=== PATIENT | male | born 1965 | race African-American/Black ===

== ENCOUNTER 2018-01-02 06:25 | Inpatient (IN) | payer OTHER, MEDICAID ==
[~2018-01-02] VITALS: Ht 190.5 cm; Wt 113.4 kg
[~2018-01-02 06:25] MED LIST: DIAZ5TAB7 PO; DIPH25CA PO; DIVA125E3 PO; HYDR4TAB6 PO
--- NOTE | 2018-01-02 06:25 | NUR ---
PT BIB ALS TO ER BED 11
--- NOTE | 2018-01-02 06:28 | NUR ---
52/M BIBA FROM BUS STOP. PT C/O HEADACHE AND R HIP PAIN, X1.5 HR. PT STATED THAT HE "TWISTED HIS HIP WHILE GETTING OFF THE BUS." PT AOX4, AMB WITH ASSISTIVE DEVICE, RR EVEN AND UNLABORED. LUNG SOUNDS CLEAR BL. BS ACTIVE X4, ABD SOFT ROUND NONTENDER. NO OBVIOUS ABNORMALITY NOTED ON R HIP. HX LEGALLY BLIND, BL HIP REPLACEMENT, MIGRAINE, SCHIZOAFFECTIVE RX DEPAKOTE, VALIUM, SEROQUEL; TOOK NORCO 4HRS AGO WITH LITTLE RELIEF.
[2018-01-02 06:29] VITALS: BP 117/78
[2018-01-02] MEDS ORDERED: NACL 0.9% 1,000 ML IV ONE (06:40)
--- NOTE | 2018-01-02 06:45 | NUR ---
MIRNA MENCHACA AT [facility] Addendum: 01/02/18 at [address] THOMSON AT [facility] TO SEE PT.
--- NOTE | 2018-01-02 07:03 | NUR ---
DR BOUCHER AT BEDSIDE TO SEE PT
[2018-01-02] MEDS ORDERED: diphenhydrAMINE 50 MG CAP PO ONE (07:05)
[2018-01-02] MEDS ORDERED: MORPHINE SULFATE 4 MG/ML SYR IM ONE ×2 (07:05→09:20)
--- NOTE | 2018-01-02 07:05 | NUR ---
PER DR BOUCHER, NO NEED FOR IV. PENDING MEDS, WILL ADMINISTER ORDERED. CAUSTICS LOADER AT BEDSIDE TO DRAW BLOOD, URINE SAMPLE HANDED TO TECH.
--- NOTE | 2018-01-02 07:13 | NUR ---
PT TAKEN TO XR
--- NOTE | 2018-01-02 07:15 | NUR ---
Pt report given to FRANCO BERMUDEZ. Transfer of care at this time.
--- NOTE | 2018-01-02 07:20 | NUR ---
PT IS BACK FROM X-RAY.
[2018-01-02 07:21] LABS: BASOPHILS # (AUTO) 0.1 K/uL (0.00-0.22); MEAN CORPUSCULAR HGB CONC 34 g/dL (33-37); WHITE BLOOD COUNT (AUTO) 10.7 K/uL (4.8-10.8)
--- NOTE | 2018-01-02 07:21 | NUR ---
PT IS AAOX4, C/O HEADACHE AND RIGHT HIP PAIN 01/16, NO RELEAVE AFTER PAIN MEDICATION GIVEN EARLY, VSS, DENIES CHEST PAIN, SOB, OR N/V, REQUESTED BREAKFAST.
[2018-01-02 07:27] LABS: BASOPHILS % (AUTO) 1.4 % (0.0-2.0); EOSINOPHILS # (AUTO) 0.2 K/uL (0-0.4); EOSINOPHILS % (AUTO) 1.7 % (0.0-4.0); HEMOGLOBIN 16.7 g/dL (12.0-18.0); LYMPHOCYTES % (AUTO) 37.5 % (20.5-51.1); MEAN CORPUSCULAR HEMOGLOBIN 30 pg (27-31); MEAN CORPUSCULAR VOLUME 89.1 fL (80-94); MONOCYTES # (AUTO) 1.4 K/uL (0.8-1.0); MONOCYTES % (AUTO) 12.9 % (1.7-9.3); NEUTROPHILS % (AUTO) 46.5 % (42.2-75.2); PLATELET COUNT (AUTO) 233 K/uL (140-450); RED CELL DISTRIBUTION WIDTH 14.4 % (11.6-13.7)
[2018-01-02 07:33] LABS: BARBITURATE, URINE NEG. ng/ml (NEG <=200); BENZODIAZEPINE, URINE NEG. ng/mL (NEG <=200); CANNABINOID, URINE POS. ng/mL (NEG <=50); COCAINE, URINE POS. ng/mL (NEG <=300); OPIATE, URINE NEG. ng/mL (NEG <=2000); PHENCYCLIDINE SCREEN,URINE NEG. ng/mL (NEG <=25)
[2018-01-02 07:34] LABS: ANION GAP 16.7 (8-16); CARBON DIOXIDE 20.8 mmol/L (21-32); CHLORIDE 104 mmol/L (98-107); GFR ARICAN-AMERICAN 101 mL/min (>90); GLUCOSE 113 mg/dL (74-106); POTASSIUM 3.5 mmol/L (3.5-5.1); SODIUM SERUM 138 mmol/L (136-145); UREA NITROGEN, BLOOD 12 mg/dL (7-18)
[2018-01-02 07:40] LABS: ALBUMIN 3.9 g/dL (3.4-5.0); ASPARTATE AMINOTRANSFERASE 26 U/L (15-37); TOTAL BILIRUBIN 0.9 mg/dL (0.0-1.0)
[2018-01-02 07:44] LABS: ACETAMINOPHEN < 0.5 ug/ml (10-30); SALICYLATE < 2.8 mg/dL (2.8-20.0)
--- NOTE | 2018-01-02 08:00 | NUR ---
BREAKFAST OFFERED, PT ATE 100%
--- NOTE | 2018-01-02 08:27 | NUR ---
PT STATED HE WANTED TO KILL HIMSELF BECAUSE HE MISSED HIS , AND HE WANTED TO STAND INFRONT OF TRAFFIC TO KILL HIMSELF AT THIS TIME, ER MADE AWARE.
--- NOTE | 2018-01-02 08:50 | NUR ---
PSYCHIATRIST DR. KEY TELECONSULT DONE AT BEDSIDE, WITH HOLD FOR PSYCHIATRIC FACILITY RECOMENDATION, DR. BOUCHER MADE AWARE.
--- NOTE | 2018-01-02 09:10 | NUR ---
PATIENT MOVED TO BED 5 AT THIS TIME.
--- NOTE | 2018-01-02 09:54 | NUR ---
Patient appears to be resting comfortably in bed. Vital Signs within normal limits. Respirations even and unlabored.
--- NOTE | 2018-01-02 10:30 | NUR ---
Call Center aware of patient and packet recv'd for psych placement. Chart faxed to the following facilities for review and potential placement: [facility] L[facility] Lim, [facility] Sandi Gan
--- NOTE | 2018-01-02 12:30 | NUR ---
Patient appears to be resting comfortably in bed. Vital Signs within normal limits. Respirations even and unlabored.
--- NOTE | 2018-01-02 12:55 | NUR ---
LUNCH TRAY OFFERED; PT ATE 100% OF TRAY
--- NOTE | 2018-01-02 14:30 | NUR ---
Patient appears to be resting comfortably in bed. Vital Signs within normal limits. Respirations even and unlabored.
--- NOTE | 2018-01-02 16:00 | NUR ---
Patient appears to be resting comfortably in bed. Vital Signs within normal limits. Respirations even and unlabored.
[2018-01-02] MEDS ORDERED: ONDANSETRON 4 MG/2 ML VIAL IM/IVP PRN (17:55)
[2018-01-02] MEDS ORDERED: DOCUSATE SODIUM 100 MG GELCAP PO PRN (17:55)
--- NOTE | 2018-01-02 18:02 | NUR ---
PATIENT OFFERED DINNER TRAY. PATIENT ATE 10% ONLY AND DRANK ORANGE JUICE. DID NOT WANT WHAT WAS OFFERED.
[2018-01-02] MEDS ORDERED: DIVA500T1 PO (19:09)
[2018-01-02] MEDS ORDERED: CITA20TA15 PO (19:09)
[2018-01-02] MEDS ORDERED: QUET400T PO (19:09)
--- NOTE | 2018-01-02 19:25 | NUR ---
Patient will be admitted to care of Dr. haddad. Admited to med surg. Will go to room 109 B. Belongings list completed. Report to vickie GAMEZ. pt vitals stable.
--- NOTE | 2018-01-02 19:25 | NUR ---
PT ARRIVED AT UNIT VIA WHEELCHAIR, PT AMBULATED TO BED, TOLERATED WELL, REPORT RECEIVED FROM ER NURSE ELIDA GAMEZ, PT STABLE, NO DISTRESS NOTED, PT HAS NO IV ACCESS, PT ON ROOM AIR, NO SOB, V/S TAKEN, WNL, MRSA SWAB TAKEN, INITIAL ASSESSMENT DONE, ALL SAFETY PRECAUTION MET, 1:1 SITTER AT BEDSIDE, WILL CONTINUE TO MONITOR.
--- NOTE | 2018-01-02 19:25 | NUR ---
Pt report given to [facility] med surg. Transfer of care at this time. pt vitals stable.
[2018-01-02] MEDS: NACL 0.9% 1,000 ML IV SCH (19:30)
--- NOTE | 2018-01-02 19:30 | NUR ---
PT REFUSED IV INSERTED, DR. GIPSON NOTIFIED, STATED UNDERSTANDING, PT RESTING, NO DISTRESS NOTED, CALL LIGHT WITHIN REACH, WILL CONTINUE TO MONITOR. Addendum: 01/02/18 at 2346 by Shraddha Frye RN 1:1 SITTER AT BEDSIDE
[2018-01-02 19:37] LABS: PROTHROMBIN TIME 10.9 secs (10.8-13.4)
[2018-01-02] MEDS: HYDROcodone/APAP 5/325 MG 1 TAB TAB PO PRN (19:49)
[2018-01-02 19:50] LABS: MAGNESIUM 2.2 mg/dL (1.8-2.4)
[2018-01-02 19:51] LABS: PHOSPHORUS 2.4 mg/dL (2.5-4.9); THYROID STIMULATING HORMONE 1.32 uIU/mL (0.34-3.74)
[2018-01-02 20:00] VITALS: BP 118/70
--- NOTE | 2018-01-02 20:06 | NUR ---
PT STATED THAT HE HAS NOT DID A BM SINCE 1 WEEK AGO, AND REQUESTED TO HAVE MAGNESIUM CITRATE, PER PT THAT IS THE ONLY THING THAT WORKS, NOTIFIED DR. GIPSON REGARDING PT CONCERNS AND COMPLAINTS, STATED UNDERSTANDING, AND WILL ORDER MEDICATION. WILL CONTINUE WITH ORDERS.
[2018-01-02] MEDS ORDERED: MAGNESIUM CITRATE 300 ML BTL PO SCH (20:30)
--- NOTE | 2018-01-02 20:30 | NUR ---
Cnc Mill And Lathe Operator Notes: I attempted to meet with patient for a screen however; Patient was not cooperative and willing to met and answer any questions from DRY PRIMER POWDER BLENDER. Patient Stated " I do not want to talk now".
[2018-01-02] MEDS: QUEtiapine FUMARATE 100 MG TAB PO SCH (20:58)
--- NOTE | 2018-01-02 20:58 | NUR ---
DUE MEDICATION ADMINISTERED, PT TOLERATED WELL, NO DISTRESS NOTED, CALL LIGHT WITHIN REACH, WILL CONTINUE TO MONITOR. Addendum: 01/02/18 at 2346 by Shraddha Frye RN 1:1 SITTER AT BEDSIDE
[2018-01-03] VITALS: BP 101/60
--- NOTE | 2018-01-03 00:10 | NUR ---
CHECKED ON PT, PT SLEEPING,NO DISTRESS NOTED, V/S TAKEN, WNL, 1:1 SITTER AT BEDSIDE, WILL CONTINUE TO MONITOR.
--- NOTE | 2018-01-03 03:59 | NUR ---
No update from contacted facilities at this time. Called [facility] and s/w Rochelle, they have no beds at this time. Called [facility] and s/w Dean they have no beds at this time and are still reviewing charts. Called [facility] and s/w Aide, they have no beds at this time and are still reviewing charts. Called [facility] and s/w Cesar, No vacancies at this time. Called [facility] s/w Ada, No bed vacancies. Called [facility] left message, No answer Called [facility] and s/w Ender, No beds available today. Called [facility] and s/w Citlali, No bed vacancies tonight. Called [facility] and s/w Fiorella, no Beds at this time. Called [facility] and s/w Dahiana, No beds available at this time. Called [facility] and s/w Josie, No vacancies at this time. will endorse to next shift.
--- NOTE | 2018-01-03 04:10 | NUR ---
CHECKED ON PT, PT SLEEPING, NO DISTRESS NOTED, 1:1 SITTER AT BEDSIDE, WILL CONTINUE TO MONITOR.
--- NOTE | 2018-01-03 06:45 | NUR ---
PT REFUSES BLOOD DRAW, NO DISTRESS NOTED, CALL LIGHT WITHIN REACH, WILL CONTINUE TO MONITOR.
[2018-01-03] MEDS: HYDROcodone/APAP 5/325 MG 1 TAB TAB PO PRN (06:54)
--- NOTE | 2018-01-03 07:17 | NUR ---
ENDORSED PT TO DAY SHIFT NURSE KASEY RN, PT STABLE, NO DISTRESS NOTED, CALL LIGHT WITHIN REACH
--- NOTE | 2018-01-03 07:17 | NUR ---
RECEIVED REPORT FROM NIGHTSHIFT NURSE AT BEDSIDE. PATIENT IS ASLEEP AT THIS TIME IN LEFT LATERAL POSITION. PATIENT AROUSABLE TO NAME. NO DISTRESS NOTED. PATIENT WAS JUST MEDICATED BY NIGHTSHIFT NURSE. NO PAIN NOTED. NO IV ACCESS. PATIENT HAS 1:1 SITTER. SAFETY MEASURES ENSURED. WILL CONTINUE TO MONITOR PATIENT.
[2018-01-03 08:00] VITALS: BP 126/78
[2018-01-03] MEDS: DIVALPROEX 500 MG TABER PO SCH (08:18)
[2018-01-03] MEDS: DIAZEPAM 5 MG TAB PO SCH (08:19)
[2018-01-03] MEDS: CITALOPRAM 20 MG TAB PO SCH (08:19)
--- NOTE | 2018-01-03 08:19 | NUR ---
PATIENT TOOK ALL AM MEDICATIONS. PATIENT TOLERATED WELL.
--- NOTE | 2018-01-03 08:48 | NUR ---
PATIENT HAS BEEN SCREENED AND CATEGORIZED LOW NUTRITION RISK. PATIENT WILL BE SEEN WITHIN 7 DAYS OF ADMISSION. 01/09/[address]
--- NOTE | 2018-01-03 10:02 | NUR ---
PATIENT RESTING AT THIS TIME. 1:1 SITTER PRESENT. WILL CONTINUE TO MONITOR PATIENT.
--- NOTE | 2018-01-03 11:24 | NUR ---
Packet faxed to [facility] for review.
[2018-01-03] MEDS: HYDROcodone/APAP 10/325 MG 1 TAB TAB PO PRN ×2 (11:41→20:18)
--- NOTE | 2018-01-03 14:19 | NUR ---
PT REFUSED ECHO TO BE DONE TODAY, WILL TRY TO DO TOMORROW
--- NOTE | 2018-01-03 14:21 | NUR ---
PATIENT IS ASLEEP AT THIS TIME. WILL CONTINUE TO MONITOR PATIENT.
[2018-01-03 16:12] VITALS: BP 109/59
--- NOTE | 2018-01-03 19:20 | NUR ---
GAVE REPORT TO NIGHTSHIFT NURSE AT BEDSIDE. PATIENT IN STABLE CONDITION.
[2018-01-03] MEDS: NACL 0.9% 1,000 ML IV SCH (19:30)
--- NOTE | 2018-01-03 19:30 | NUR ---
ASSUMED CARE OF PATIENT, AWAKE, NO COMPLAINS. SITTER 1:1 AT BEDSIDE. PLAN OF CARE DISCUSSED WITH PATIENT AND FAMILY MEMBER, VERBALIZED UNDERSTANDING WELL. CALL LIGHT WITHIN REACH.
[2018-01-03] MEDS: QUEtiapine FUMARATE 100 MG TAB PO SCH (20:37)
--- NOTE | 2018-01-03 23:11 | NUR ---
ASLEEP NOW. NO COMPLAINS. CALL LIGHT WITHIN REACH. SITTER AT BEDSIDE.
[2018-01-04 00:29] VITALS: BP 107/60
[2018-01-04] MEDS: HYDROcodone/APAP 10/325 MG 1 TAB TAB PO PRN ×4 (02:48→20:14)
--- NOTE | 2018-01-04 07:21 | NUR ---
ENDORSED CARE AT BEDSIDE WITH TIN RN, PATIENT IN STABLE CONDITION.
--- NOTE | 2018-01-04 07:21 | NUR ---
RECEIVED REPORT FROM NURSE. PT QUIETLY RESTING IN BED, A/O ABLE TO COMMUNICATE NEEDS. NO S/S OF ACUTE DISTRESS NOTED, SAFETY MEASURES IN PLACE. WILL CONTINUE TO MONITOR.
--- NOTE | 2018-01-04 07:45 | NUR ---
PHYSICIAN AT BEDSIDE ROUNDING ON PT.
[2018-01-04 08:00] VITALS: BP 139/74
[2018-01-04] MEDS: DIAZEPAM 5 MG TAB PO SCH (08:30)
[2018-01-04] MEDS: DIVALPROEX 500 MG TABER PO SCH (08:30)
[2018-01-04] MEDS: CITALOPRAM 20 MG TAB PO SCH (08:30)
--- NOTE | 2018-01-04 10:15 | NUR ---
Pt resting comfortably, no s/s of acute distress noted, safety measures and suicide precautions remain in place, will continue to monitor continuously.
--- NOTE | 2018-01-04 12:55 | NUR ---
Pt awake, A/O able to communicate needs, sitting at bedside having lunch. Pt denies pain or discomfort at this time. No s/s of acute distress noted, safety measures and suicide precautions remain in place, will continue to monitor continuously.
--- NOTE | 2018-01-04 14:21 | NUR ---
[facility], [facility], NO BEDS PER [facility], [facility]EDS [facility], NO BEDS PER [facility], NO BEDS PER [facility], NO BEDS PER [facility] PACKETS SENT AVAILABLE FOR WAITLIST ARE [facility] AND [facility].
[2018-01-04 16:00] VITALS: BP 116/59
--- NOTE | 2018-01-04 16:00 | NUR ---
Pt quietly resting in bed. Pt OOB to bathroom ad delicia during shift, frequently repositions independently. Pt remains able to communicate needs. No s/s of pain or acute distress noted at this time, safety measures and suicide precautions remain in place, will continue to monitor continuously.
--- NOTE | 2018-01-04 16:31 | NUR ---
Received call from Citlali at [facility] regarding pt placement, answered inquiries regarding pertinent information. Per Dr Guerin Pt is medically clear, notified we are waiting for final approval from [facility]. Charge nurse Brittany also notified Pt is being considered for placement at [facility]; awaiting call back for confirmation. ;
--- NOTE | 2018-01-04 17:01 | NUR ---
Per Citlali at [facility] bed available however when they attempted insurance verification, they were informed that the Pt does not have any additional hospital or Psych days available. personnel manager out of the office, Charge nurse Brittany notified.
--- NOTE | 2018-01-04 19:16 | NUR ---
Pt quietly resting in bed. Pt remained oriented and able to communicate needs throughout shift. Pt did not attempt or threaten self harm during shift. Pt c/o pain x 2, encouraged relaxation, distraction and repositioning without sufficient relief, Pt administered oral pain medication as ordered with effectiveness. No s/s of pain or acute distress noted at this time, safety measures and suicide precautions remain in place. [facility] Adelaide.
--- NOTE | 2018-01-04 19:17 | NUR ---
RECEIVED REPORT FROM DAY SHIFT RN, FOR CONTINUITY OF CARE. PT IS A/OX4 AND LEGALLY BLIND, ON ROOM AIR. PT IS ABLE TO MAKE NEEDS KNOWN, ABLE TO FOLLOW COMMANDS. PT BREATHS EQUAL AND UNLABORED, LUNG SOUNDS CLEAR. PT SKIN IS INTACT. PT AMBULATES WITH ASSIST. PT REFUSED IV ACCESS. DISCUSSED PLAN OF CARE WITH PT, PT VERBALIZED UNDERSTANDING. VITAL SIGNS WITHIN NORMAL LIMITS. PT STABLE, NO SIGNS OF DISTRESS NOTED AT THIS TIME. 1:1 SITTER IN ROOM. BED IN LOWEST POSITION, BED ALARM ON. CALL LIGHT WITHIN REACH, WILL CONTINUE TO MONITOR.
[2018-01-04] MEDS: NACL 0.9% 1,000 ML IV SCH (19:30)
[2018-01-04] MEDS: ATORVASTATIN 20 MG TAB PO SCH (20:14)
[2018-01-04] MEDS: QUEtiapine FUMARATE 100 MG TAB PO SCH (20:15)
--- NOTE | 2018-01-04 20:17 | NUR ---
ADMINISTERED SCHEDULED MEDICATIONS, PT TOLERATED WELL. NO PROBLEMS NOTED WHILE SWALLOWING.
--- NOTE | 2018-01-04 22:20 | NUR ---
PT STABLE, NO SIGNS OF DISTRESS NOTED AT THIS TIME. BED IN LOWEST POSITION, BED ALARM ON. WILL CONTINUE TO MONITOR.
[2018-01-05] VITALS: BP 105/49
--- NOTE | 2018-01-05 | NUR ---
VITAL SIGNS WITHIN NORMAL LIMITS. PT STABLE, NO SIGNS OF DISTRESS NOTED AT THIS TIME. BED IN LOWEST POSITION, BED ALARM ON. WILL CONTINUE TO MONITOR.
--- NOTE | 2018-01-05 02:25 | NUR ---
PT SLEEPING, EASILY AWAKENED. PT STABLE, NO SIGNS OF DISTRESS NOTED AT THIS TIME. BED IN LOWEST POSITION, BED ALARM ON. WILL CONTINUE TO MONITOR.
[2018-01-05] MEDS: HYDROcodone/APAP 10/325 MG 1 TAB TAB PO PRN ×4 (04:01→20:36)
--- NOTE | 2018-01-05 04:05 | NUR ---
PT REQUESTED NORCO FOR HEADACHE PAIN LEVEL 8/10. ADMINISTERED NORCO, PT TOLERATED WELL.
--- NOTE | 2018-01-05 07:20 | NUR ---
ENDORSED PT TO DAY SHIFT RN PAOLA FOR CONTINUITY OF CARE, PT IN STABLE CONDITION.
--- NOTE | 2018-01-05 07:21 | NUR ---
RECEIVED PT FROM NIGHT NURSE. MS PT WITH SITTER. PT IN STABLE CONDITION.PT HAS NO COMPLAINTS AT THIS TIME, NO RESPIRATORY DISTRESS NOTED. POC REVIEWED AND DENIES ANY NEEDS AT THIS TIME. BED AT LOWEST POSITION. CALL LIGHTS WITHIN EASY REACH.
[2018-01-05 08:00] VITALS: BP 120/81
[2018-01-05] MEDS: DIAZEPAM 5 MG TAB PO SCH (09:33)
[2018-01-05] MEDS: CITALOPRAM 20 MG TAB PO SCH (09:33)
[2018-01-05] MEDS: DIVALPROEX 500 MG TABER PO SCH (09:33)
[2018-01-05] MEDS: ECOTRIN 81 MG TABEC PO SCH (09:34)
--- NOTE | 2018-01-05 09:37 | NUR ---
PT C/O PAIN 11/16 RIGHT HIP PAIN AND HEADACHE. DUE PAIN MEDS GIVEN.AM MEDS GIVEN.
--- NOTE | 2018-01-05 10:26 | NUR ---
PT IN BED RESTING. REASSESSMENT FOR PAIN DONE. ABLE TO VERBALIZE ZERO INTENSITY OF PAIN. NO COMPLAINTS AT THIS TIME.
--- NOTE | 2018-01-05 13:47 | NUR ---
FLU/INFLUENZA OFFERED. REFUSED BY PATIENT DUE TO FEAR OF PHYSIOLOGICAL REACTIONS.EXPLAINED THE BENEFITS AND RISKS OF THE VACCINATION. VERBALIZED UNDERSTANDING.
--- NOTE | 2018-01-05 14:51 | NUR ---
PT C/O OF 8/10 PAIN IN R HIP AND HEADACHE. DUE PAIN MEDS GIVEN.
[2018-01-05 16:00] VITALS: BP 108/57
--- NOTE | 2018-01-05 17:31 | NUR ---
PT SLEEPING ON BED. PT IN STABLE CONDITION. NO COMPLAINTS AT THIS TIME.
--- NOTE | 2018-01-05 18:22 | NUR ---
NO UPDATES AT THIS TIME
--- NOTE | 2018-01-05 19:11 | NUR ---
ENDORSED TO NIGHT NURSE. PT ON BED ASLEEP, NO DISTRESS NOTED.
--- NOTE | 2018-01-05 19:20 | NUR ---
RECEIVED PT IN STABLE CONDITION FROM AM NURSE. AWAKE,ALERT AND ORIENTED BUT LEGALLY BLIND. ON MED SURG. WITH 1;1 SITTER DUE TO SUICIDAL IDEATION. NO IV ACCESS PT. REFUSING ANY . CAN BE UP TO BATHROOM WITH STANDBY ASSIST. WILL CLOSELY MONITOR PT. SITTER AWARE . BED ON LOW POSITION . WILL CONTINUE TO CLOSELY MONITOR PT.
[2018-01-05] MEDS: NACL 0.9% 1,000 ML IV SCH (19:30)
[2018-01-05] MEDS: ATORVASTATIN 20 MG TAB PO SCH (20:38)
[2018-01-05] MEDS: QUEtiapine FUMARATE 100 MG TAB PO SCH (20:39)
--- NOTE | 2018-01-05 21:36 | NUR ---
SLEEPING AT THIS TIME. NO MORE S/S OF ANY PAIN NOTED.
[2018-01-05 23:00] VITALS: BP 123/67
--- NOTE | 2018-01-06 02:00 | NUR ---
ASLEEP. SITTER IN ATTENDANCE. WILL CONTINUE TO MONITOR.
[2018-01-06] MEDS: HYDROcodone/APAP 10/325 MG 1 TAB TAB PO PRN ×4 (03:43→20:32)
--- NOTE | 2018-01-06 03:43 | NUR ---
PT COMPLAINTS OF PAIN 11/16. NORCO PO GIVEN. PT TOLERATED WELL. ELANA RN DELEGATED INTERVENTION WHILE ADMITTING PT.
--- NOTE | 2018-01-06 06:00 | NUR ---
0450. PT ASLEEP. NO S/S OF ANY DISCOMFORT NOR PAIN NOTED.
--- NOTE | 2018-01-06 07:16 | NUR ---
ENDORSED PT IN STABLE CONDITION TO AM NURSE FOR CONTINUITY OF CARE.
--- NOTE | 2018-01-06 07:30 | NUR ---
PATIENT WAS SLEEPING COMFORTABLY, EASILY AROUSABLE BY NAME. RESPIRATION EVEN, UNLABOR ON ROOM AIR. SKIN DRY AND WARM. NO IV ACCESS AT THIS TIME. COMPLAINED OF HEADACHE 09/16, WILL MEDICATE PER ORDER. PLAN OF CARE WAS DISCUSSED WITH PATIENT. BED AT LOW POSITION, SIDE RAILS UP. 1:1 SITTER ENSURED Addendum: 01/06/18 at 0758 by Cassie Ham RN PATIENT ADMITTED STILL HAVE SUICIDAL THOUGH BY RUNNING INTO THE TRAFFIC, AND HEARING VOICES TO TELL HIM TO KILL HIMSELF. 1:1 SITTER ENSURED
[2018-01-06 08:00] VITALS: BP 138/83
[2018-01-06] MEDS: DIVALPROEX 500 MG TABER PO SCH (08:41)
[2018-01-06] MEDS: DIAZEPAM 5 MG TAB PO SCH (08:41)
[2018-01-06] MEDS: CITALOPRAM 20 MG TAB PO SCH (08:41)
[2018-01-06] MEDS: ECOTRIN 81 MG TABEC PO SCH (08:41)
--- NOTE | 2018-01-06 09:17 | NUR ---
PATIENT IS SLEEPING COMFORTABLY. RESPIRATION EVEN, UNLABOR ON ROOM AIR. NO DISTRESS NOTED AT THIS TIME.
--- NOTE | 2018-01-06 11:34 | NUR ---
CONTACTED [facility], [facility] BEDS [facility]- NO ANSWER, LEFT ON HOLD MULTIPLE TIMES WITHOUT RESPONSE KAY KN[facility], NO BEDS PER [facility], [facility] RESENT. [facility], NO BEDS PER [facility], NO BEDS PER [facility], NO BEDS PER [facility]
--- NOTE | 2018-01-06 12:00 | NUR ---
PATIENT AWAKE, EATING LUNCH COMFORTABLY. RESPIRATION EVEN, UNLABOR ON ROOM AIR. NO DISTRESS NOTED AT THIS TIME. 1:1 SITTER ENSURED
[2018-01-06] MEDS ORDERED: MAGNESIUM CITRATE 300 ML BTL PO PRN (12:25)
--- NOTE | 2018-01-06 13:40 | NUR ---
PATIENT COMPLAINED OF HIP PAIN 7/10, ACHING, NON RADIATING. WILL MEDICATE PER ORDER
--- NOTE | 2018-01-06 15:00 | NUR ---
PATIENT AWAKE, ALERT. RESPIRATION EVEN, UNLABOR ON ROOM AIR. DR. MAC WAS AT BEDSIDE. NO DISTRESS NOTED AT THIS TIME
[2018-01-06 16:00] VITALS: BP 111/73
--- NOTE | 2018-01-06 18:02 | NUR ---
PATIENT WAS RESTING COMFORTABLY. RESPIRATION EVEN, UNLABOR ON ROOM AIR. NO DISTRESS NOTED AT THIS TIME
--- NOTE | 2018-01-06 19:20 | NUR ---
RECEIVED PT REPORT FROM DAY SHIFT NURSE MEHRDAD, AT BEDSIDE. PT IN STABLE CONDITION. PT ASLEEP IN BED. PT IS EASILY AROUSABLE. PT IS LEGALLY BLIND. 1:1 SITTER IN ROOM DU TO SUICIDAL IDEATION. PT HAS NO IV ACCESS AT THIS TIME. BED IS LOCKED, LOW POSTION, WITH SIDE RAILS UP X2. BOARD UPDATED. WILL CONTINUE TO MONITOR PT.
[2018-01-06] MEDS: NACL 0.9% 1,000 ML IV SCH (19:30)
[2018-01-06] MEDS: ATORVASTATIN 20 MG TAB PO SCH (20:31)
[2018-01-06] MEDS: QUEtiapine FUMARATE 100 MG TAB PO SCH (20:32)
--- NOTE | 2018-01-06 20:32 | NUR ---
ADMINISTERED SCHEDULED MEDICATIONS TO PT. PT C/O PAIN IN R HIP, NORCO GIVEN. PT TOLERATED WELL. PT NOW LAYING IN BED LISTENING TO TV. 1:1 SITTER IN ROOM. WILL CONTINUE TO MONITOR.
--- NOTE | 2018-01-06 21:32 | NUR ---
PT SLEEPING COMFORTABLY IN BED. NO SIGNS OR SYMPTOMS OF DISTRESS. WILL CONTINUE TO MONITOR PT.
--- NOTE | 2018-01-06 23:30 | NUR ---
NO CHANGE IN CONDITION. PT ASLEEP IN BED WITH NO SIGNS OR SYMPTOMS OF DISTRESS. 1:1 SITTER IN ROOM. WILL CONTINUE TO MONITOR.
[2018-01-07] VITALS: BP 105/71
--- NOTE | 2018-01-07 00:07 | NUR ---
PT VS CHECKED, AND WITHIN NORMAL LIMITS. 1:1 SITTER IN ROOM. WILL CONTINUE TO MONITOR.
--- NOTE | 2018-01-07 02:10 | NUR ---
PT ASLEEP IN BED. NO SIGNS OR SYMPTOMS OF DISTRESS. 1:1 SITTER IN ROOM. WILL CONTINUE TO MONITOR PT.
[2018-01-07] MEDS: HYDROcodone/APAP 10/325 MG 1 TAB TAB PO PRN ×2 (02:42→08:04)
--- NOTE | 2018-01-07 04:03 | NUR ---
NO CHANGE IN CONDITION. 1:1 SITTER IN ROOM. WILL CONTINUE TO MONITOR.
--- NOTE | 2018-01-07 04:52 | NUR ---
Follow-up call for bed placement, no beds at the following facilities: [facility], s/w Mack. [facility], s/w Cecelia. [facility] s[facility]w Tessa. [facility] s/w Yecenia. [facility], s/w Yessi.
--- NOTE | 2018-01-07 06:07 | NUR ---
NO CHANGE IN CONDITION. 1:1 SITTER IN ROOM. WILL CONTINUE TO MONITOR PT.
--- NOTE | 2018-01-07 07:12 | NUR ---
ENDORSED PT TO DAY SHIFT NURSE, JAMES, FOR CONTINUITY OF CARE. PT IN STABLE CONDITION.
--- NOTE | 2018-01-07 07:13 | NUR ---
BEDSIDE REPORT RECEIVED FROM PM SHIFT NURSE. PT ASLEEP IN BED, RESPIRATIONS EVEN & UNLABORED, FLACC 0. SITTER KURT AT BEDSIDE FOR 1:1 SUPERVISION.
[2018-01-07 08:00] VITALS: BP 128/78
[2018-01-07] MEDS: DIAZEPAM 5 MG TAB PO SCH (08:03)
[2018-01-07] MEDS: DIVALPROEX 500 MG TABER PO SCH (08:03)
[2018-01-07] MEDS: CITALOPRAM 20 MG TAB PO SCH (08:03)
[2018-01-07] MEDS: ECOTRIN 81 MG TABEC PO SCH (08:04)
--- NOTE | 2018-01-07 09:10 | NUR ---
PT LYING COMFORTABLY IN BED, AWAKE, QUIET, DENIES ANY DISCOMFORT, RESPIRATIONS EVEN & UNLABORED. 1:1 SITTER AT BEDSIDE FOR SUICIDAL PRECAUTIONS.
--- NOTE | 2018-01-07 11:05 | NUR ---
PT AMB TO RESTROOM, VOIDED x1, THEN AMB BACK TO BED. GAIT UNSTEADY D/T POOR VISION, STANDBY ASSIST PROVIDED. PT DEMANDING TO HAVE SPEAKER FOR THE TV BECAUSE HE WANTS TO LISTEN TO THE NEWS. INFORMED PT THAT D/T SUICIDAL PRECAUTIONS, DEVICES WITH CORDS ARE PROHIBITED IN ROOM. PT BECAME ANGRY & YELLING PROFANITIES. CHARGE NURSE NOTIFIED & CAME TO SPEAK WITH PT. PT CONT TO YELL PROFANITIES AT CHARGE NURSE BUT CALMED DOWN & LAID DOWN QUIETLY IN BED. CONT 1:1 SUPERVISION.
[2018-01-07] MEDS ORDERED: oxyCODONE/APAP 5/325 MG 1 TAB TAB PO PRN ×3 (12:00→17:00)
--- NOTE | 2018-01-07 12:10 | NUR ---
PT LYING COMFORTABLY IN BED, AWAKE, VERBAL, RESPIRATIONS EVEN & UNLABORED. 1:1 SITTER AT BEDSIDE FOR CONTINUOUS MONITORING. SUICIDAL PRECAUTIONS IN PLACE.
--- NOTE | 2018-01-07 13:06 | NUR ---
[facility], [facility]S [facility], NO BEDS PER [facility], [facility]ICEMAIL WITH [facility], NO BEDS AT THIS TIME PER SHE
[2018-01-07] MEDS ORDERED: MAGNESIUM CITRATE 300 ML BTL PO PRN (14:10)
[2018-01-07] MEDS ORDERED: oxyCODONE 40 MG TABER PO PRN (14:15)
--- NOTE | 2018-01-07 14:27 | NUR ---
PT ASLEEP IN BED, RESPIRATIONS EVEN & UNLABORED, FLACC 0. 1:1 SITTER AT BEDSIDE. SUICIDE PRECAUTIONS IN PLACE.
--- NOTE | 2018-01-07 15:11 | NUR ---
PLACEMENT PACKETS RESENT TO [facility]
[2018-01-07 16:00] VITALS: BP 117/78
--- NOTE | 2018-01-07 16:30 | NUR ---
PT ASLEEP IN BED, RESPIRATIONS EVEN & UNLABORED, FLACC 0. CONT 1:1 SUPERVISION @ ALL TIMES FOR SUICIDAL PRECAUTIONS.
--- NOTE | 2018-01-07 17:05 | NUR ---
PT TRANSFERRED TO ROOM 109B. PT ABLE TO AMB FROM ROOM TO ROOM, UNSTEADY GAIT NOTED D/T POOR VISION. PT LAID DOWN IN 109B BED. ORIENTED PT TO ROOM, VERBALIZED UNDERSTANDING. 1:1 SITTER @ BEDSIDE.
[2018-01-07] MEDS: NACL 0.9% 1,000 ML IV SCH (18:20)
--- NOTE | 2018-01-07 19:05 | NUR ---
RECEIVED PT REPORT FROM DAY SHIFT NURSE JAMES, AT BEDSIDE. PT IN STABLE CONDITION. PT LAYING IN BED AWAKE. PT IS LEGALLY BLIND. 1:1 SITTER IN ROOM DUE TO SUICIDAL IDEATION. PT HAS NO IV ACCESS AT THIS TIME. PT ASKING ABOUT PAIN MEDICINE, LET PT KNOW I WOULD ADMINISTER IT ONCE IT WAS DUE. BED IS LOCKED, LOW POSITION, WITH SIDE RAILS UP X2. WILL CONTINUE TO MONITOR PT.
--- NOTE | 2018-01-07 19:05 | NUR ---
REPORT GIVEN TO PM SHIFT NURSE DARA.
[2018-01-07] MEDS: ATORVASTATIN 20 MG TAB PO SCH (21:06)
[2018-01-07] MEDS: oxyCODONE 40 MG TABER PO SCH (21:06)
[2018-01-07] MEDS: QUEtiapine FUMARATE 100 MG TAB PO SCH (21:06)
--- NOTE | 2018-01-07 21:06 | NUR ---
ADMINISTERED SCHEDULED MEDICATIONS. PT TOLERATED WELL. ALL NEEDS ARE MET AT THIS TIME. SITTER IN ROOM. WILL CONTINUE TO MONITOR.
--- NOTE | 2018-01-07 23:09 | NUR ---
PT SLEEPING COMFORTABLY IN BED. NO SIGNS OR SYMPTOMS OF DISTRESS. WILL CONTINUE TO MONITOR.
[2018-01-08] VITALS: BP 106/72
--- NOTE | 2018-01-08 01:11 | NUR ---
NO CHANGE IN CONDITION. SITTER IN ROOM. WILL CONTINUE TO MONITOR.
--- NOTE | 2018-01-08 03:15 | NUR ---
NO CHANGE IN CONDITION. SITTER IN ROOM. WILL CONTINUE TO MONITOR.
--- NOTE | 2018-01-08 03:39 | NUR ---
No bed availability at any of the designated facilities, will endorsed to AM shift to continue to look for placement.
--- NOTE | 2018-01-08 04:50 | NUR ---
ASSISTED PT TO BATHROOM. PT BACK IN BED. NO SIGNS OR SYMPTOMS OF DISTRESS. WILL CONTINUE TO MONITOR.
--- NOTE | 2018-01-08 06:24 | NUR ---
PT ASLEEP IN BED. NO SIGNS OR SYMPTOMS OF DISTRESS. SITTER IN ROOM. WILL CONTINUE TO MONITOR.
--- NOTE | 2018-01-08 07:02 | NUR ---
PT REPORT GIVEN TO NURSECAREY FOR CONTINUITY OF CARE. PT IN STABLE CONDITION.
--- NOTE | 2018-01-08 07:05 | NUR ---
ASSUMED CONTINUITY OF CARE. NO SIGNS AND SYMPTOMS OF ACUTE DISTRESS NOTED. INITIAL ASSESSMENT DONE. CALM, QUIET, AND COOPERATIVE. NO SUICIDAL THOUGHTS OBSERVED. FAMILIARIZED WITH SURROUNDINGS AND KEEP ENVIRONMENT SAFE. CLOSELY MONITORED BY MAYRA PILLAI FOR SUICIDAL PREVENTION.
--- NOTE | 2018-01-08 07:35 | NUR ---
Patient's Plan of Care was discussed and reviewed with SURGICAL SALES REPRESENTATIVE: CAREY, CONTINUE WITH CURRENT POC.
[2018-01-08 08:00] VITALS: BP 105/67
[2018-01-08] MEDS: CITALOPRAM 20 MG TAB PO SCH (08:46)
[2018-01-08] MEDS: ECOTRIN 81 MG TABEC PO SCH (08:46)
[2018-01-08] MEDS: DIAZEPAM 5 MG TAB PO SCH (08:46)
[2018-01-08] MEDS: DIVALPROEX 500 MG TABER PO SCH (08:46)
[2018-01-08] MEDS: oxyCODONE 40 MG TABER PO SCH ×2 (08:47→20:43)
--- NOTE | 2018-01-08 10:00 | NUR ---
[facility] day shift aware of need for placement, will contact previously faxed facilities for follow up on bed availability.
[2018-01-08 12:00] VITALS: BP 109/72
--- NOTE | 2018-01-08 12:00 | NUR ---
VITALS SIGNS STABLE. NO C/O PAIN. WILL MONITOR.
--- NOTE | 2018-01-08 19:07 | NUR ---
RECEIVED BEDSIDE REPORT FROM EMERALD PATINO, PT IN BED, NO SIGNS OF ACUTE DISTRESS, REFUSES IV ACCESS. PT IS LEGALLY BLIND, ON FALL PRECAUTIONS, 1:1 SITTER, EXPLAINED PLAN OF CARE, WILL CONTINUE TO MONITOR.
--- NOTE | 2018-01-08 19:07 | NUR ---
BEDSIDE REPORT GIVEN TO LORENE SIMON. IN STABLE CONDITION.
[2018-01-08] MEDS: NACL 0.9% 1,000 ML IV SCH (19:30)
[2018-01-08] MEDS: QUEtiapine FUMARATE 100 MG TAB PO SCH (20:43)
[2018-01-08] MEDS: ATORVASTATIN 20 MG TAB PO SCH (20:44)
--- NOTE | 2018-01-08 22:00 | NUR ---
PT RESTING IN BED NO SIGNS OF DISTRESS, WILL CONTINUE WITH 1:1 SITTER.
--- NOTE | 2018-01-08 23:25 | NUR ---
PT RESTING IN BED NO SIGNS OF ACUTE DISTRESS, CONTINUE WITH 1:1 SITTER, WILL CONTINUE TO MONITOR.
[2018-01-09] VITALS: BP 108/63
--- NOTE | 2018-01-09 01:59 | NUR ---
Notified charge nurse Pauline GAMEZ, there are no vacancy at the following facilities [facility] - [facility] - [facility] intake [facility]- [facility] Gary Mata Will continue to make calls for placement thru the shift.
--- NOTE | 2018-01-09 02:00 | NUR ---
PT ASLEEP IN BED, NO SIGNS OF DISTRESS, WILL CONTINUE WITH 1:1 SITTER.
--- NOTE | 2018-01-09 03:18 | NUR ---
PT ASLEEP IN BED, CALL LIGHT WITHIN REACH, WILL CONTINUE WITH 1:1 SITTER.
--- NOTE | 2018-01-09 05:51 | NUR ---
PT RESTING IN BED, WILL CONTINUE WITH 1:1 SITTER. NO SIGNS OF DISTRESS.
--- NOTE | 2018-01-09 07:12 | NUR ---
RECEIVED BEDSIDE REPORT FROM PM SHIFT NURSE. PT ASLEEP IN BED, RESPIRATIONS EVEN & UNLABORED, FLACC 0. STAFF SITTER AT BEDSIDE FOR SUICIDE PRECAUTIONS.
--- NOTE | 2018-01-09 07:35 | NUR ---
ENDORSED PT TO DAY SHIFT NURSE, PT STABLE.
[2018-01-09 08:00] VITALS: BP 142/92
--- NOTE | 2018-01-09 08:10 | NUR ---
DR RICHMOND & DR MATHEW AT BEDSIDE TO ASSESS PT.
[2018-01-09] MEDS: DIAZEPAM 5 MG TAB PO SCH (08:12)
[2018-01-09] MEDS: oxyCODONE 40 MG TABER PO SCH ×2 (08:13→20:46)
[2018-01-09] MEDS: CITALOPRAM 20 MG TAB PO SCH (08:13)
[2018-01-09] MEDS: DIVALPROEX 500 MG TABER PO SCH (08:13)
[2018-01-09] MEDS: ECOTRIN 81 MG TABEC PO SCH (08:13)
--- NOTE | 2018-01-09 09:10 | NUR ---
PT ASKED TO USE PHONE TO CALL HIS BANK & TRANSFER MONEY TO HIS CHECKING ACCOUNT. PT ASKED NURSE TO DIAL [phone] FOR HIM D/T POOR VISION. NUMBER DIALED TO PHONE & GIVEN TO PT. PT ABLE TO COMPLETE PHONE CALL WITH NURSE AT BEDSIDE WITH PT AGREEMENT.
--- NOTE | 2018-01-09 10:46 | NUR ---
Pt lying quietly in bed, respirations even & unlabored, FLACC 0. Sitter at bedside for continuous monitoring per suicide precaution.
--- NOTE | 2018-01-09 11:15 | NUR ---
Dr. Acuña at bedside, informed pt that psychiatrist will be visiting pt this afternoon. Pt verbalized understanding.
--- NOTE | 2018-01-09 11:18 | NUR ---
[facility] aware patient is still in unit. will continue to look for placement throughout shift. will update unit when new information has been received.
--- NOTE | 2018-01-09 12:11 | NUR ---
Lunch tray served to pt. Tray content explained to pt using clock position. Pt verbalized understanding & states "thank you." Sitter at bedside for continuous monitoring.
--- NOTE | 2018-01-09 13:30 | NUR ---
Pt sitting up in bed, conversing with someone who isn't there. Pt observed to be looking at empty space at bedside & saying "What? I don't need to talk to you, you're not even invited. You made me do it." Asked pt who he is talking to. Pt states "someone," but refused to specify who. Asked pt if the voices are telling him to harm himself or someone. Pt states "no". Sitter remains at bedside for continuous monitoring.
--- NOTE | 2018-01-09 15:02 | NUR ---
01/09/18 RD INITIAL ASSESSMENT COMPLETED PLEASE REFER TO NUTRITION ASSESSMENT UNDER CARE ACTIVITY FOR ESTIMATED NUTRITIONAL NEEDS. 1. CONTINUE REGULAR DIET TOLERATED 2. RD TO FOLLOW-UP 5-7 DAYS, LOW RISK BRIGIDA KIDD RD
--- NOTE | 2018-01-09 15:18 | NUR ---
Psychiatrist at bedside assessing pt. Addendum: 01/09/18 at 1558 by Anneliese Quintero RN Correction: Dr. Christiansen psychologist at bedside assessing pt.
[2018-01-09 16:00] VITALS: BP 132/74
--- NOTE | 2018-01-09 17:50 | NUR ---
Pt sitting on bed, eating dinner. Respirations even & unlabored. Sitter at bedside for continuous monitoring.
--- NOTE | 2018-01-09 19:26 | NUR ---
No update from contacted facilities at this time. will continue to look for placement.
[2018-01-09] MEDS: NACL 0.9% 1,000 ML IV SCH (19:30)
--- NOTE | 2018-01-09 19:30 | NUR ---
RECEIVED BEDSIDE FROM DAY SHIFT RN, PT IN BED, NO SIGNS OF ACUTE DISTRESS, 1:1 SITTER, NO IV ACCESS DUE TO PAIN REFUSED, EXPLAINED PLAN OF CARE. WILL GIVE DUE MEDICATIONS. OFFERED TO PLACE YELLOW GOWN SINCE PT IN ON FALL RISK. PT REFUSED STATED "NO THANK YOU". WILL CONTINUE TO MONITOR.
[2018-01-09] MEDS: QUEtiapine FUMARATE 100 MG TAB PO SCH (20:46)
[2018-01-09] MEDS: ATORVASTATIN 20 MG TAB PO SCH (20:46)
--- NOTE | 2018-01-09 20:46 | NUR ---
PT C/O PAIN IN HIPS. MEDICATED WITH SCHEDULED OXYCONTIN, DUE MEDICATIONS GIVEN, PT TOLERATED WELL, REPOSITIONED FOR COMFORT, WILL CONTINUE WITH 1:1 SITTER, WILL CONTINUE TO MONITOR.
--- NOTE | 2018-01-09 22:22 | NUR ---
PT IN BED NO SIGNS OF DISTRESS, WILL CONTINUE WITH 1:1 SITTER, WILL CONTINUE TO MONITOR.
[2018-01-09 23:41] VITALS: BP 132/57
--- NOTE | 2018-01-10 02:10 | NUR ---
PT ASLEEP IN BED, CONTINUE WITH 1:1 SITTER. WILL CONTINUE TO MONITOR.
--- NOTE | 2018-01-10 05:08 | NUR ---
PT ASLEEP IN BED, WILL CONTINUE WITH 1:1 SITTER.
--- NOTE | 2018-01-10 05:09 | NUR ---
RECD PATIENT FROM [facility], RN FOR CONTINUITY OF CARE NURSE/SITTER. SLEEPING COMFORTABLY IN BED, RESPIRATION EVEN AND UNLABORED. NO APPEARANCE OF PAIN NOTED, 0/10.
--- NOTE | 2018-01-10 06:00 | NUR ---
INQUIRED IF HE WANTS TO USE THE BATHROOM TO VOID. DID NOT RESPOND BUT CONTINUED SLEEPING.
--- NOTE | 2018-01-10 07:10 | NUR ---
ABLE TO SLEEP WELL. CONDITION REMAIN STABLE. SAFETY MAINTAINED DURING SHIFT. ENDORSED TO AM NURSE JACOBS FOR CONTINUITY OF CARE.
--- NOTE | 2018-01-10 07:15 | NUR ---
RECEIVED REPORT FROM CLOTH WIRE WEAVER NURSE. PT IS SLEEPING IN BED, SEMI FOWLERS POSITION, PT IS AAOX3, AMBULATORY, LEGALLY BLIND, ON ROOM AIR, NO S/S OF RESPIRATORY DISTRESS OR DISCOMFORT NOTED, PT HAS NO IV ACCESS, PT REFUSED IV ACCESS, SAFETY/FALL/SUICIDAL PRECAUTIONS ARE IN PLACE, 1:1 SITTER AT BEDSIDE. WILL CONTINUE TO MONITOR.
[2018-01-10 08:00] VITALS: BP 131/79
[2018-01-10] MEDS: ECOTRIN 81 MG TABEC PO SCH (08:39)
[2018-01-10] MEDS: oxyCODONE 40 MG TABER PO SCH ×2 (08:39→21:00)
--- NOTE | 2018-01-10 08:39 | NUR ---
DUE MEDICATION GIVEN, PT TOLERATED WELL. WILL CONTINUE TO MONITOR.
[2018-01-10] MEDS: CITALOPRAM 20 MG TAB PO SCH (08:40)
[2018-01-10] MEDS: DIVALPROEX 500 MG TABER PO SCH (08:40)
[2018-01-10] MEDS: DIAZEPAM 5 MG TAB PO SCH (08:41)
--- NOTE | 2018-01-10 10:30 | NUR ---
PT IS SLEEPING IN BED AT THIS TIME, NO S/S OF DISTRESS OR DISCOMFORT NOTED, 1:1 SITTER AT BEDSIDE.
--- NOTE | 2018-01-10 12:35 | NUR ---
PT IS SLEEPING IN BED, NO S/S OF DISTRESS NOTED, 1:1 SITTER AT BEDSIDE.
[2018-01-10] MEDS: MAGNESIUM CITRATE 300 ML BTL PO PRN (14:08)
--- NOTE | 2018-01-10 14:40 | NUR ---
PT IS CALM, RESTING IN BED, SEMI FOWLERS POSITION, NO S/S OF DISCOMFORT OR DISTRESS NOTED, WILL CONTINUE TO MONITOR.
[2018-01-10 16:00] VITALS: BP 117/74
--- NOTE | 2018-01-10 16:31 | NUR ---
PT SLEEPING IN BED AT THIS TIME, 1:1 SITTER AT BEDSIDE.
--- NOTE | 2018-01-10 16:38 | NUR ---
Marriage And Family Teacher Note: I reviewed consultation, per , it may be possible to consider discharge if stable housing can be located with attached outpatient psychiatric and psychological treatment. I faxed inquiries to the following snfs: [facility] , [facility] , [facility] , and [facility] , made aware.
--- NOTE | 2018-01-10 16:50 | NUR ---
There are no beds available at this time. Will continue to follow up.
--- NOTE | 2018-01-10 17:24 | NUR ---
Dental Lab Technician Note: I called and spoke with patient's brother Neeraj Rouse , per Neeraj, patient lives on and off with him, he stated patient can be discharge to his home ( aware), I confirmed with Neeraj his home address [address] [address]. 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 He stated he thinks patient has a psychiatrist and psychologist he follows up with but isn't sure, made aware. Per Julia from [facility] , patient has exhausted his Medicare SNF days, and they don't have a long term care administrator bed available at this time, she reported they don't have a contract with [facility]. Per Rosalia from [facility] , patient has exhausted his Medicare SNF days, and they don't have a [facility] bed available at this time
--- NOTE | 2018-01-10 19:11 | NUR ---
ENDORSED PT TO INDUSTRIAL CONVEYOR BELT REPAIRER NURSE FOR CONTINUITY OF CARE. PT STABLE AT THIS TIME.
--- NOTE | 2018-01-10 19:12 | NUR ---
RECD. RESTING IN BED, AWAKE, A/OX3. RESPIRATION EVEN AND UNLABORED. NO IV LINE. LEGALLY BLIND. ON 1:1 SITTER. WHEN INQUIRED IF HE HAS ALREADY A BM STATED NONE. ENCOURAGED TO DRINK MORE FLUIDS, ALTERNATELY TURN TO THE SIDES. PLAN OF CARE FOR THE SHIFT DISCUSSED. VERBALIZED UNDERSTANDING. DENIES PAIN 0/10.;
[2018-01-10] MEDS: NACL 0.9% 1,000 ML IV SCH (19:30)
--- NOTE | 2018-01-10 20:00 | NUR ---
Patient's Plan of Care was discussed and reviewed with ORTHOPEDIC TECHNICIAN: KYLAH GATES
[2018-01-10] MEDS: QUEtiapine FUMARATE 100 MG TAB PO SCH (21:00)
--- NOTE | 2018-01-10 21:00 | NUR ---
DUE PO MEDICATIONS GIVEN. OUT OF BED, BEDDINGS AND GOWN CHANGED.
[2018-01-10] MEDS: ATORVASTATIN 20 MG TAB PO SCH (21:01)
[2018-01-11] VITALS: BP 116/72
--- NOTE | 2018-01-11 | NUR ---
SLEEPING COMFORTABLY IN BED.
--- NOTE | 2018-01-11 00:39 | NUR ---
Still no beds at the following facilities: [facility] [facility] [facility], s/w Shraddha Ngo [facility], s/w Brad [facility], s/w Renata Rajputa, s[facility]w Mere [facility], [facility], s[facility]w Pablo
--- NOTE | 2018-01-11 05:30 | NUR ---
HAD MODERATE AMOUNT OF BM IN BED, CLEANSED AND MADE COMFORTABLE IN BED. CONDITION REMAIN STABLE. WILL ENDORSE TO AM NURSE FOR CONTINUITY OF CARE.
--- NOTE | 2018-01-11 07:25 | NUR ---
ENDORSED TO FRANCO DENSON FOR CONTINUITY OF CARE.
--- NOTE | 2018-01-11 07:25 | NUR ---
RECEIVED PATIENT REPORT AT BEDSIDE. PATIENT AWAKE AND ALERT. NO S/S OF DISTRESS NOTED. PATIENT WITH 1:1 SITTER. NO S/S OF DISTRESS NOTED
[2018-01-11 08:00] VITALS: BP 125/84
[2018-01-11] MEDS: oxyCODONE 40 MG TABER PO SCH (08:52)
[2018-01-11] MEDS: DIVALPROEX 500 MG TABER PO SCH (08:52)
[2018-01-11] MEDS: ECOTRIN 81 MG TABEC PO SCH (08:52)
[2018-01-11] MEDS: CITALOPRAM 20 MG TAB PO SCH (08:52)
[2018-01-11] MEDS ORDERED: DIAZEPAM 5 MG TAB PO SCH (09:00)
--- NOTE | 2018-01-11 09:00 | NUR ---
ADMINISTERED DUE MEDICATIONS. PATIENT CALM AND COOPERATIVE. NO S/S OF DISTRESS AT THIS TIME
[2018-01-11] MEDS: MAGNESIUM CITRATE 300 ML BTL PO PRN (10:35)
--- NOTE | 2018-01-11 10:45 | NUR ---
Masonry Instructor Note: I called patient's brother Neeraj Rouse , no answer, left message.
[2018-01-11] MEDS ORDERED: MAGN1.753 PO (11:30)
[2018-01-11] MEDS ORDERED: INFLUENZA VIRUS VACCINE QUAD 0.5 ML SYR IMVAC SCH (11:45)
--- NOTE | 2018-01-11 13:22 | NUR ---
Cloth Shader Note: I called and spoke with Jailene from [facility] , I informed her patient no longer needs inpatient psychiatric placement.
--- NOTE | 2018-01-11 13:22 | NUR ---
Supervisor [employer] Note: I called and spoke with patient's brother Neeraj Rouse , per Neeraj, patient can be discharge to his home today, home address [address] [place] [address]. I informed Neeraj plan is for transportation to excelsior picker patient at 6:30pm today. Neeraj verbalized understanding and stated he will home today.
--- NOTE | 2018-01-11 14:27 | NUR ---
1121 CALLED [facility] [phone] AND SPOKE WITH LIBBY. SET UP W/C TRANSPORT FOR PT TO GO TO HIS BROTHER'S HOME [address] [place] [address] AND PROVIDED HER WITH THE BROTHERS CONTACT NUMBER. PT IS UNABLE TO COVER THE COST $285 SO INFORMED LIBBY WILL BE [facility] BILL. SCHEDULED EXCELLENCE LEADER IS [phone]. PT AND ASSIGNED NURSE INFORMED OF ARRANGEMENTS.
--- NOTE | 2018-01-11 14:57 | NUR ---
PATIENT ASLEEP IN BED. NO S/S OF DISTRESS NOTED
[2018-01-11 17:17] VITALS: BP 108/66
--- NOTE | 2018-01-11 19:06 | NUR ---
PATIENT PICKED UP BT [facility] TO BE DISCHARGED TO HIS BROTHER'S HOUSE. DISCHARGE INSTRUCTIONS AND DISCHARGE PRESCRIPTIONS GIVEN. PATIENT VERBALIZED UNDERSTANDING. PATIENT LEFT IN STABLE CONDITION
== END 2018-01-11 19:25 | disposition home or self-care (01) | DRG 917 ==
LOC: MED 06:25 → MTU 18:09
PROVIDERS: ADMIT General Practice; ATTEND General Practice
PROC: 3E0234Z Introduction of Serum, Toxoid and Vaccine into Muscle, Percutaneous Approach (ICD-10-PCS; principal; 2018-01-11)
DX: T40.5X1A Poisoning by cocaine, accidental (unintentional), initial encounter (principal); G92 Toxic encephalopathy; R45.851 Suicidal ideations; F14.229 Cocaine dependence with intoxication, unspecified; S73.101A Unspecified sprain of right hip, initial encounter; M47.897 Other spondylosis, lumbosacral region; E66.9 Obesity, unspecified; F12.90 Cannabis use, unspecified, uncomplicated; F25.0 Schizoaffective disorder, bipolar type; Z96.643 Presence of artificial hip joint, bilateral; G89.29 Other chronic pain; G43.909 Migraine, unspecified, not intractable, without status migrainosus; X58.XXXA Exposure to other specified factors, initial encounter; K59.03 Drug induced constipation; T40.2X5A Adverse effect of other opioids, initial encounter; H54.8 Legal blindness, as defined in USA; Z59.0 Homelessness; Z23 Encounter for immunization; Z88.0 Allergy status to penicillin; Z88.8 Allergy status to other drugs, medicaments and biological substances; Z79.899 Other long term (current) drug therapy; Y93.89 Activity, other specified; Y92.89 Other specified places as the place of occurrence of the external cause; Y99.8 Other external cause status; Z86.73 Personal history of transient ischemic attack (TIA), and cerebral infarction without residual deficits; Z68.31 Body mass index [BMI] 31.0-31.9, adult
CPT/HCPCS: 36415; 71045; 72170; 80053; 80305; 83036; 83690; 83735; 83880; 84100; 84134; 84443; 85025; 85610; 85730; 87081; 90658; 93005; 96372; 99285; G0480; G0482; J2270; Q0092; Q0163